=== PATIENT | female | born 1985 | race Caucasian/White ===

== ENCOUNTER 2024-07-26 18:30 | Emergency (ER) | payer MEDICAID, OTHER, SELFPAY ==
[2024-07-26] VITALS (13 sets, daily range): BP systolic 115–143; BP diastolic 45–74; PULSE 97–113; RESP 20; TEMP 36.4–36.6; O2SAT 97–100; BMI 18.8
--- NOTE | 2024-07-26 18:45 | ED_ITS ---
HPI - General Adult General Time Seen by Provider: 18:46 <Autumn Santiago MD - Last Filed: 07/26/24 22:38> Date Seen: 07/26/24 <Autumn Santiago MD - Last Filed: 07/26/24 22:38> Chief complaint: Unspecified Complaint, Adult <Autumn Santiago MD - Last Filed: 07/26/24 22:38> Stated complaint: dizziness <Autumn Santiago MD - Last Filed: 07/26/24 22:38> Time Seen by Provider: 07/26/24 18:45 <Autumn Santiago MD - Last Filed: 07/26/24 22:38> Source: patient, RN notes reviewed and other (Significant other Ruperto) <Autumn Santiago MD - Last Filed: 07/26/24 22:38> Mode of arrival: EMS <Autumn Santiago MD - Last Filed: 07/26/24 22:38> Limitations: no limitations <Autumn Santiago MD - Last Filed: 07/26/24 22:38> History of Present Illness HPI narrative: Emiliana is a 39-year-old female with a history of chronic fatigue syndrome who comes to the emergency room via EMS off the [place] for complaints of feeling lightheaded and like she was going to pass out. According to EMS patient was noted to have [place] [address] [place] as she was feeling lightheaded, dizzy and thought she was going to pass out. She had been up in the [facility] for the weekend and she was on her way home to [facility] when this occurred. Once in the emergency room she notes that she was feeling so dizzy and that something was wrong. She stated to nurses that the felling is going to take me over? and she has ?an unusual warmth inside and ? and begged the nurse not to lever there alone. She denies any alcohol or drug use. Upon meeting Emiliana in room 6, she make statements to me like there is an ice pick into my heart and ice is flowing through my veins. She states that something is wrong and she is very scared. She suddenly states that I half to go to the bathroom and we immediately bring a commode in. She states that she feels like she is going to pass out and that bad feeling is coming back but yet she is able to stand up and get to the commode without difficulty. She has normal bowel movement. I do return to the room later. There was only normal bowel movement in no diarrhea. Patient did not have any vomiting. I am able to further talked to Emiliana. She is not particularly forthcoming with what she was doing in the [facility] over the weekend. She denies any major medical problems including mental illness. She continues to make statements that she is very scared and that something is wrong and her whole body is in spasm. She states that she does not want to be alone. Taking her history is very challenging as she is not answering my questions about her past medical history but prefers to make some odd statements regarding how she is feeling at this very moment. She does deny any trauma this weekend or drug use or anyone hurting her. When asked about alcohol use she states ?I do not constitution party?. <Autumn Santiago MD - Last Filed: 07/26/24 22:38> Related Data Allergies/adverse reactions: Allergies Allergy/AdvReac Type Severity Reaction Status Date / Time erythromycin base (From Allergy Mild Verified 07/26/24 18:40 Erythrocin) Penicillins Allergy Mild Verified 07/26/24 18:40 Sulfa (Sulfonamide Allergy Verified 07/26/24 18:40 Antibiotics) <Autumn Santiago MD - Last Filed: 07/26/24 22:38> Review of Systems Status of ROS: Reports: unobtainable due to mental status <Autumn Santiago MD - Last Filed: 07/26/24 22:38> Narrative: Denies any major medical illness, mental illness, , drug use, alcohol use. <Autumn Santiago MD - Last Filed: 07/26/24 22:38> [facility] Social History: Social History Smoking Status: Never smoker Do you use any of these nicotine containing products: None Second hand tobacco smoke exposure: No How often do you have a drink containing alcohol: never AUDIT-C Alcohol total score: 0 Non-prescribed substance use: denies use service: No <Autumn Santiago MD - Last Filed: 07/26/24 22:38> Exam Narrative: Exam Narrative: Emiliana is alert and oriented but extremely anxious. She makes odd statements about an ice pick going through her veins and her whole body being in spasm in spite of reassuring vital signs. We do try to comfort her here. She is asking that anybody in the room remain with her. Pupils are equal and reactive. Head is atraumatic normocephalic. Neck is supple. Range of motion of neck is full. Heart with a tachycardic rate that improves if there is no staff in the room. Lungs are clear bilaterally. Abdomen soft nontender. No evidence of unusual bruising or track bhakta on the arms. Moving all extremities without difficulty. Examination of the back shows no bruising. <Autumn Santiago MD - Last Filed: 07/26/24 22:38> Const: Vital Signs, click to edit/add: Vital Signs - 24 hr 07/26/24 18:35 07/26/24 19:39 07/26/24 19:45 Temperature 97.5 F L Pulse Rate 99 109 H Pulse Rate [Pulse Oximeter] 97 Respiratory Rate 20 Blood Pressure [Ri ght Upper Arm] 143/45 H Pulse Oximetry 100 100 100 Oxygen Delivery Me thod Room Air 07/26/24 19:49 07/26/24 20:00 07/26/24 20:15 Temperature Pulse Rate 99 100 107 H Pulse Rate [Pulse Oximeter] Respiratory Rate Blood Pressure [Ri ght Upper Arm] Pulse Oximetry 100 99 98 Oxygen Delivery Me thod 07/26/24 20:30 07/26/24 20:45 07/26/24 21:00 Temperature Pulse Rate 108 H 101 H 97 Pulse Rate [Pulse Oximeter] Respiratory Rate Blood Pressure [Ri ght Upper Arm] Pulse Oximetry 99 98 97 Oxygen Delivery Me thod 07/26/24 21:15 07/26/24 21:30 07/26/24 21:30 Temperature Pulse Rate 111 H 113 H Pulse Rate [Pulse Oximeter] Respiratory Rate Blood Pressure [Ri ght Upper Arm] 118/64 Pulse Oximetry 97 97 Oxygen Delivery Me thod Room Air 07/26/24 23:00 07/26/24 23:25 07/27/24 01:13 Temperature 97.9 F 97.9 F Pulse Rate Pulse Rate [Pulse Oximeter] 97 83 Respiratory Rate 20 20 Blood Pressure [Ri ght Upper Arm] 115/74 118/70 Pulse Oximetry 97 97 97 Oxygen Delivery Me thod Room Air Room Air 07/27/24 03:15 Temperature 97.9 F Pulse Rate Pulse Rate [Pulse Oximeter] 85 Respiratory Rate 20 Blood Pressure [Ri ght Upper Arm] 115/74 Pulse Oximetry 97 Oxygen Delivery Me thod Room Air <Autumn Santiago MD - Last Filed: 07/26/24 22:38> Vital Signs, click to edit/add: Vital Signs - 24 hr 07/26/24 18:35 07/26/24 19:39 07/26/24 19:45 Temperature 97.5 F L Pulse Rate 99 109 H Pulse Rate [Pulse Oximeter] 97 Respiratory Rate 20 Blood Pressure [Ri ght Upper Arm] 143/45 H Pulse Oximetry 100 100 100 Oxygen Delivery Me thod Room Air 07/26/24 19:49 07/26/24 20:00 07/26/24 20:15 Temperature Pulse Rate 99 100 107 H Pulse Rate [Pulse Oximeter] Respiratory Rate Blood Pressure [Ri ght Upper Arm] Pulse Oximetry 100 99 98 Oxygen Delivery Me thod 07/26/24 20:30 07/26/24 20:45 07/26/24 21:00 Temperature Pulse Rate 108 H 101 H 97 Pulse Rate [Pulse Oximeter] Respiratory Rate Blood Pressure [Ri ght Upper Arm] Pulse Oximetry 99 98 97 Oxygen Delivery Me thod 07/26/24 21:15 07/26/24 21:30 07/26/24 21:30 Temperature Pulse Rate 111 H 113 H Pulse Rate [Pulse Oximeter] Respiratory Rate Blood Pressure [Ri ght Upper Arm] 118/64 Pulse Oximetry 97 97 Oxygen Delivery Me thod Room Air 07/26/24 23:00 07/26/24 23:25 07/27/24 01:13 Temperature 97.9 F 97.9 F Pulse Rate Pulse Rate [Pulse Oximeter] 97 83 Respiratory Rate 20 20 Blood Pressure [Ri ght Upper Arm] 115/74 118/70 Pulse Oximetry 97 97 97 Oxygen Delivery Me thod Room Air Room Air 07/27/24 03:15 Temperature 97.9 F Pulse Rate Pulse Rate [Pulse Oximeter] 85 Respiratory Rate 20 Blood Pressure [Ri ght Upper Arm] 115/74 Pulse Oximetry 97 Oxygen Delivery Me thod Room Air <Olvin Seaman MD - Last Filed: 07/27/24 06:50> Documenting provider has reviewed patient's vital signs: yes <Autumn Santiago MD - Last Filed: 07/26/24 22:38> Course Course ED Course: Emiliana is presenting with multiple complaints, somewhat evasive with history taking and extreme anxiety and possible paranoia. She is receptive to us checking her blood and doing tests which we will do. There is no evidence of trauma at this time. Will check a CBC, comprehensive panel, CRP, alcohol, thiamin, B12, magnesium, vitamin-D, drug screen and alcohol. EKG and troponin will be added. Patient will be kept on the engine monitor. Differential diagnosis includes but is not limited to encephalopathy, intoxication, anxiety with panic attack, schizoaffective/schizophrenia, sleep deprivation or. Fortunately patient is not within our medical system. She is actually from [place]. Will attempt to get in contact with family. <Autumn Santiago MD - Last Filed: 07/26/24 22:38> Reevaluation(s) Reevaluation #1: Nursing staff notes Emiliana is not receptive to the blood pressure cuff. I have asked him to do manual checks every 1/2 hour. The pulse has normalized to the 90s. Temp is normal. Currently awaiting lab values. Of note, patient seems most comfortable under a blanket with a blanket around her head. Occasionally she yells out ?help me?. We are trying to reassure her. Given her anxiety a did give her Ativan 0.5 mg IV and this seems to have helped her. I was able to talk to her significant other Ruperto who states they have known each other for approximately 6 years but he does not know her extremely well. He does agree that he is a significant other. He states that she had a ?brutal we can?. She had gone to your conference and training in the [facility] and stated that she did not sleep at all 2 nights ago. He states that she got a hotel last night and was able to sleep. He notes that he was on the phone with her as she was driving on 19/02 and she is describing feeling lightheaded and thus she pulled over and he called 911 for her. He notes that she does have a h istory of anxiety but has never been hospitalized for it or needed to use medications. He notes that she is starting a new job and she has been within the last 6 years and therefore she is under a lot of stress. In terms of PTSD he states that she has told him a few things about growing up and the household that she lived in had ?horrible things? happen but he is unable to give me any further details. He does state that her son is with her mother and that she really should give her mom a call. Ruperto also notes that patient has had Lyme disease in the past and still think she deals with this. She is also on extremely restricted diet because of IBS. <Autumn Santiago MD - Last Filed: 07/26/24 22:38> Reevaluation #2: Patient's labs are reassuring at this time. Troponin is negative as is alcohol. Potassium slightly low at 3.2. I do speak with patient and she is remarkably improved. She is interactive, speaking normally and mentating normally at this time. She does tell me that she has had this happen before and she describes it as dysregulation and quivering of her brain. She notes that this has happened in the past. She does describe extreme stress and no sleep 48 hours ago. We are trying to provide some gluten free options for food at this time. Patient has heart rate that has been around 110-113. She does not have any chest pain at this time. O2 sats are within normal limits. She did receive 500 mL normal saline. Patient does tell me that she has had hematuria in the past and past both a 12 mm and 7 mm stone. She notes that since that happened in April she has had no further problems with she is enquiring about any possible blood in her urine today. Her test is negative. I did add a D-dimer as she has persistent tachycardia although I do think this is most likely from a stress reaction. <Autumn Santiago MD - Last Filed: 07/26/24 22:38> Vital Signs Vital signs: Initial Vital Signs Temperature 97.5 F L 07/26/24 18:35 Temperature Source Temporal Artery Scan 07/26/24 18:35 Pulse Rate 97 07/26/24 18:35 Pulse Rhythm Regular 07/26/24 18:35 Respiratory Rate 20 07/26/24 18:35 Blood Pressure 143/45 H 07/26/24 18:35 Blood Pressure Mean 77 07/26/24 18:35 Blood Pressure Position Sitting 07/26/24 18:35 Pulse Oximetry 100 07/26/24 18:35 Oxygen Delivery Method Room Air 07/26/24 18:35 Vital Signs Temperature 97.5 F L 07/26/24 18:35 Pulse Rate 97 07/26/24 18:35 Respiratory Rate 20 07/26/24 18:35 Blood Pressure 143/45 H 07/26/24 18:35 Pulse Oximetry 100 07/26/24 18:35 Oxygen Delivery Method Room Air 07/26/24 18:35 Temperature 97.9 F 07/27/24 03:15 Pulse Rate 85 07/27/24 03:15 Respiratory Rate 20 07/27/24 03:15 Blood Pressure 115/74 07/27/24 03:15 Pulse Oximetry 97 07/27/24 03:15 Oxygen Delivery Method Room Air 07/27/24 03:15 <Autumn Santiago MD - Last Filed: 07/26/24 22:38> Initial Vital Signs Temperature 97.5 F L 07/26/24 18:35 Temperature Source Temporal Artery Scan 07/26/24 18:35 Pulse Rate 97 07/26/24 18:35 Pulse Rhythm Regular 07/26/24 18:35 Respiratory Rate 20 07/26/24 18:35 Blood Pressure 143/45 H 07/26/24 18:35 Blood Pressure Mean 77 07/26/24 18:35 Blood Pressure Position Sitting 07/26/24 18:35 Pulse Oximetry 100 07/26/24 18:35 Oxygen Delivery Method Room Air 07/26/24 18:35 Vital Signs Temperature 97.5 F L 07/26/24 18:35 Pulse Rate 97 07/26/24 18:35 Respiratory Rate 20 07/26/24 18:35 Blood Pressure 143/45 H 07/26/24 18:35 Pulse Oximetry 100 07/26/24 18:35 Oxygen Delivery Method Room Air 07/26/24 18:35 Temperature 97.9 F 07/27/24 03:15 Pulse Rate 85 07/27/24 03:15 Respiratory Rate 20 07/27/24 03:15 Blood Pressure 115/74 07/27/24 03:15 Pulse Oximetry 97 07/27/24 03:15 Oxygen Delivery Method Room Air 07/27/24 03:15 <Olvin Seaman MD - Last Filed: 07/27/24 06:50> Medications Administered Medications: Discontinued Medications Generic Name Dose Route Start Last Admin Trade Name Freq PRN Reason Stop Dose Admin Sodium Chloride 500 mls @ 500 mls/hr 07/26/24 18:46 07/26/24 19:37 0.9 % Sodium Chloride 500 Ml IV 07/26/24 19:45 Infused .Q1H ONE Infusion Lorazepam 0.5 mg 07/26/24 19:23 07/26/24 19:36 Lorazepam 2 Mg/Ml Inj IVP 07/26/24 19:24 0.5 mg ONCE ONE Administration Potassium Bicarbonate 50 meq 07/26/24 22:01 07/26/24 22:22 Potassium Bicarb 25 Meq Effervescent Tab PO 07/26/24 22:02 50 meq ONCE ONE Administration Potassium Chloride 40 meq 07/26/24 23:05 07/26/24 23:10 Potassium Chloride 10 Meq Capsule Er PO 07/26/24 23:06 40 meq ONCE ONE Administration <Autumn Santiago MD - Last Filed: 07/26/24 22:38> Discontinued Medications Generic Name Dose Route Start Last Admin Trade Name Freq PRN Reason Stop Dose Admin Sodium Chloride 500 mls @ 500 mls/hr 07/26/24 18:46 07/26/24 19:37 0.9 % Sodium Chloride 500 Ml IV 07/26/24 19:45 Infused .Q1H ONE Infusion Lorazepam 0.5 mg 07/26/24 19:23 07/26/24 19:36 Lorazepam 2 Mg/Ml Inj IVP 07/26/24 19:24 0.5 mg ONCE ONE Administration Potassium Bicarbonate 50 meq 07/26/24 22:01 07/26/24 22:22 Potassium Bicarb 25 Meq Effervescent Tab PO 07/26/24 22:02 50 meq ONCE ONE Administration Potassium Chloride 40 meq 07/26/24 23:05 07/26/24 23:10 Potassium Chloride 10 Meq Capsule Er PO 07/26/24 23:06 40 meq ONCE ONE Administration <Olvin Seaman MD - Last Filed: 07/27/24 06:50> Medical Decision Making MDM Narrative Medical decision making narrative: 1. Dizziness-patient noted to have a neurological exam with full range of motion, no headache, normal EKG. I do believe this is likely from extreme anxiety. Symptoms have resolved at this time with Ativan 0.5 mg IV. COVID/influenza/RSV negative. Alcohol negative and drug screen is negative. 2. Anxiety-patient noted to be improved after Ativan 0.5 mg. According to her significant other does have a history of anxiety but has not needed medical treatment medications and has not been hospitalized. This may be a combination of extreme fatigue as well as stressors. Initial plan was to have patient see social human services assistants tomorrow but she is completely resolved at this time. She has resumed normal speech interaction and mentation. Her significant other is on his way at this time. 3. Tachycardia-this is in the setting of no cough, no unusual swelling of the lower extremities and a normal oxygen level. Patient did receive normal saline. I have a D-dimer pending. If positive patient will need CT of the chest, if negative discharge home as planned. 3. Disposition-initial plan was to remain in the ED overnight with social human services assistants consult tomorrow morning. The unusual statements patient initially made have resolved. Patient's boyfriend is on his way here. Emiliana's car as on the side of the free[place] in [place]. I would not want her to be driving tonight after the events of today. Therefore would request that Emiliana stay in the ED overnight with continued cardiac monitoring and discharge to [facility] morning if no recurrence of symptoms. Addendum: D-dimer is negative. Patient able to eat kind bar in is requesting for another kind bar along with peanut butter which will provide to her. She is currently also drinking her liquid potassium. Have cleared with her that I plan on keeping her on the monitor overnight and then discharge her tomorrow morning. Have signed this patient out to my partner Dr. Pacheco. will be the physician overnight. Request that he discharge patient in the morning as long as there are no recurrent symptoms. <Autumn Santiago MD - Last Filed: 07/26/24 22:38> 1. Dizziness-patient noted to have a neurological exam with full range of motion, no headache, normal EKG. I do believe this is likely from extreme anxiety. Symptoms have resolved at this time with Ativan 0.5 mg IV. COVID/influenza/RSV negative. Alcohol negative and drug screen is negative. 2. Anxiety-patient noted to be improved after Ativan 0.5 mg. According to her significant other does have a history of anxiety but has not needed medical treatment medications and has not been hospitalized. This may be a combination of extreme fatigue as well as stressors. Initial plan was to have patient see social human services assistants tomorrow but she is completely resolved at this time. She has resumed normal speech interaction and mentation. Her significant other is on his way at this time. 3. Tachycardia-this is in the setting of no cough, no unusual swelling of the lower extremities and a normal oxygen level. Patient did receive normal saline. I have a D-dimer pending. If positive patient will need CT of the chest, if negative discharge home as planned. 3. Disposition-initial plan was to remain in the ED overnight with social human services assistants consult tomorrow morning. The unusual statements patient initially made have resolved. Patient's boyfriend is on his way here. Emiliana's car as on the side of the freeway in [place]. I would not want her to be driving tonight after the events of today. Therefore would request that Emiliana stay in the ED overnight with continued cardiac monitoring and discharge tomorrow morning if no recurrence of symptoms. Addendum: D-dimer is negative. Patient able to eat kind bar in is requesting for another kind bar along with peanut butter which will provide to her. She is currently also drinking her liquid potassium. Have cleared with her that I plan on keeping her on the monitor overnight and then discharge her tomorrow morning. Have signed this patient out to my partner Dr. Pacheco. will be the physician overnight. Request that he discharge patient in the morning as long as there are no recurrent symptoms. Jurgen -- inherited this patient at change of shift. No events overnight. Anticipating discharge shortly. Discharge per Dr. Santiago <Olvin Seaman MD - Last Filed: 07/27/24 06:50> Lab Data Lab results reviewed: Yes I reviewed the patient's lab results <Autumn Santiago MD - Last Filed: 07/26/24 22:38> Labs: Lab Results 07/26/24 07/26/24 07/26/24 Range/Units 18:47 19:15 19:18 WBC 5.11 (4.50-11.00) K/uL RBC 4.51 (4.00-5.20) m/uL Hgb 12.1 (12.0-16.0) gm/dL Hct 37.4 (33.0-51.0) % MCV 83 (80-100) fL MCH 27 (26-34) pg MCHC 32 (32-36) gm/dL RDW Coeff of Delores 12.2 (11.5-15.5) % Plt Count 218 (140-440) K/uL Neut % (Auto) 64.8 (42.0-72.0) % Lymph % (Auto) 21.5 (20-44) % [place] % (Auto) 11.5 H (0.0-11.0) % Eos % (Auto) 1.4 (0.0-7.0) % Baso % (Auto) 0.8 (0.0-3.0) % Neut # (Auto) 3.31 (1.7-7.0) K/uL Lymph # (Auto) 1.10 (0.90-2.90) K/uL [place] # (Auto) 0.60 (0.00-0.90) K/UL Eos # (Auto) 0.07 (0.00-0.50) K/uL Baso # (Auto) 0.04 (0.00-0.30) K/uL Abs Immat Gran (auto) 0.00 (0.00-0.30) K/uL Imm/Tot Granulo (auto) 0.0 % D-Dimer Quant (PE/DVT) 0.16 (0.00-0.50) ug/ml Sodium 135 (135-149) mmol/L Potassium 3.2 L (3.6-5.1) mmol/L Chloride 103 (96-114) mmol/L Carbon Dioxide 22 (20-32) mmol/L Anion Gap 10 (7-15) mEq/L BUN 16 (5-24) mg/dL Creatinine 0.9 (0.5-1.5) mg/dL Estimated Creat Clear 70.68 Estimated GFR 82 ml/min Glucose 116 H (60-115) mg/dL Calcium 9.3 (8.4-10.6) mg/dL Magnesium 1.9 (1.5-2.6) mg/dL Total Bilirubin 0.9 (0.1-1.5) mg/dL AST 21 (12-35) U/L ALT 18 (4-35) U/L Alkaline Phosphatase 64 (40-150) U/L Troponin I < 0.01 L (0.01-0.04) ng/mL Total Protein 7.2 (6.0-8.3) g/dL Albumin 4.4 (3.3-5.0) g/dL Vitamin B12 406 (243-894) pg/mL 25-OH Vitamin D Total 44 (30-80) ng/mL HCG, Qual Negative (Negative) Urine Color (Yellow) Urine Appearance (Clear) Urine pH (5.0-8.5) Ur Specific [place] (1.000-1.030) Urine Protein (Negative) Urine Glucose (UA) (Negative) Urine Ketones (Negative) Urine Blood (Negative) Urine Nitrite (Negative) Urine Bilirubin (Negative) Urine Urobilinogen (0.2-1.0) Ur Leukocyte Esterase (Negative) Urine RBC (0-2) Urine WBC (0-5) Ur Squamous Epith Cells (None-Few) Urine Bacteria (None) Urine Opiates Screen (Negative) Ur Oxycodone Screen (Negative) Urine Methadone Screen (Negative) Ur Barbiturates Screen (Negative) U Tricyclic Antidepress (Negative) Ur Phencyclidine Scrn (Negative) Ur Amphetamines Screen (Negative) U Methamphetamines Scrn (Negative) U Benzodiazepines Scrn (Negative) Urine Cocaine Screen (Negative) U Marijuana (THC) Screen (Negative) Ur Drug Screen Comment Ethyl Alcohol < 0.01 L (0.01-0.03) % SARS-CoV-2 (PCR) (Negative) Influenza Type A (PCR) (Negative) Influenza Type B (PCR) (Negative) RSV (PCR) (Negative) Lab Acknowledgement Test Added POC Troponin I 0.00 L (0.01-0.04) ng/ml 07/26/24 07/26/24 07/26/24 Range/Units 20:00 20:16 20:47 WBC (4.50-11.00) K/uL RBC (4.00-5.20) m/uL Hgb (12.0-16.0) gm/dL Hct (33.0-51.0) % MCV (80-100) fL MCH (26-34) pg MCHC (32-36) gm/dL RDW Coeff of Delores (11.5-15.5) % Plt Count (140-440) K/uL Neut % (Auto) (42.0-72.0) % Lymph % (Auto) (20-44) % [place] % (Auto) (0.0-11.0) % Eos % (Auto) (0.0-7.0) % Baso % (Auto) (0.0-3.0) % Neut # (Auto) (1.7-7.0) K/uL Lymph # (Auto) (0.90-2.90) K/uL [place] # (Auto) (0.00-0.90) K/UL Eos # (Auto) (0.00-0.50) K/uL Baso # (Auto) (0.00-0.30) K/uL Abs Immat Gran (auto) (0.00-0.30) K/uL Imm/Tot Granulo (auto) % D-Dimer Quant (PE/DVT) (0.00-0.50) ug/ml Sodium (135-149) mmol/L Potassium (3.6-5.1) mmol/L Chloride (96-114) mmol/L Carbon Dioxide (20-32) mmol/L Anion Gap (7-15) mEq/L BUN (5-24) mg/dL Creatinine (0.5-1.5) mg/dL Estimated Creat Clear Estimated GFR ml/min Glucose (60-115) mg/dL Calcium (8.4-10.6) mg/dL Magnesium (1.5-2.6) mg/dL Total Bilirubin (0.1-1.5) mg/dL AST (12-35) U/L ALT (4-35) U/L Alkaline Phosphatase (40-150) U/L Troponin I (0.01-0.04) ng/mL Total Protein (6.0-8.3) g/dL Albumin (3.3-5.0) g/dL Vitamin B12 (243-894) pg/mL 25-OH Vitamin D Total (30-80) ng/mL HCG, Qual (Negative) Urine Color Yellow (Yellow) Urine Appearance Clear (Clear) Urine pH 7.0 (5.0-8.5) Ur Specific [place] 1.010 (1.000-1.030) Urine Protein Negative (Negative) Urine Glucose (UA) Negative (Negative) Urine Ketones Trace A (Negative) Urine Blood Trace-intact A (Negative) Urine Nitrite Negative (Negative) Urine Bilirubin Negative (Negative) Urine Urobilinogen 0.2 (0.2-1.0) Ur Leukocyte Esterase Negative (Negative) Urine RBC 0-2 (0-2) Urine WBC 0-2 (0-5) Ur Squamous Epith Cells None (None-Few) Urine Bacteria None (None) Urine Opiates Screen Negative (Negative) Ur Oxycodone Screen Negative (Negative) Urine Methadone Screen Negative (Negative) Ur Barbiturates Screen Negative (Negative) U Tricyclic Antidepress Negative (Negative) Ur Phencyclidine Scrn Negative (Negative) Ur Amphetamines Screen Negative (Negative) U Methamphetamines Scrn Negative (Negative) U Benzodiazepines Scrn Negative (Negative) Urine Cocaine Screen Negative (Negative) U Marijuana (THC) Screen Negative (Negative) Ur Drug Screen Comment See Note Ethyl Alcohol (0.01-0.03) % SARS-CoV-2 (PCR) (Negative) Influenza Type A (PCR) (Negative) Influenza Type B (PCR) (Negative) RSV (PCR) (Negative) Lab Acknowledgement Test Added POC Troponin I (0.01-0.04) ng/ml 07/26/24 Range/Units 21:12 WBC (4.50-11.00) K/uL RBC (4.00-5.20) m/uL Hgb (12.0-16.0) gm/dL Hct (33.0-51.0) % MCV (80-100) fL MCH (26-34) pg MCHC (32-36) gm/dL RDW Coeff of Delores (11.5-15.5) % Plt Count (140-440) K/uL Neut % (Auto) (42.0-72.0) % Lymph % (Auto) (20-44) % [place] % (Auto) (0.0-11.0) % Eos % (Auto) (0.0-7.0) % Baso % (Auto) (0.0-3.0) % Neut # (Auto) (1.7-7.0) K/uL Lymph # (Auto) (0.90-2.90) K/uL [place] # (Auto) (0.00-0.90) K/UL Eos # (Auto) (0.00-0.50) K/uL Baso # (Auto) (0.00-0.30) K/uL Abs Immat Gran (auto) (0.00-0.30) K/uL Imm/Tot Granulo (auto) % D-Dimer Quant (PE/DVT) (0.00-0.50) ug/ml Sodium (135-149) mmol/L Potassium (3.6-5.1) mmol/L Chloride (96-114) mmol/L Carbon Dioxide (20-32) mmol/L Anion Gap (7-15) mEq/L BUN (5-24) mg/dL Creatinine (0.5-1.5) mg/dL Estimated Creat Clear Estimated GFR ml/min Glucose (60-115) mg/dL Calcium (8.4-10.6) mg/dL Magnesium (1.5-2.6) mg/dL Total Bilirubin (0.1-1.5) mg/dL AST (12-35) U/L ALT (4-35) U/L Alkaline Phosphatase (40-150) U/L Troponin I (0.01-0.04) ng/mL Total Protein (6.0-8.3) g/dL Albumin (3.3-5.0) g/dL Vitamin B12 (243-894) pg/mL 25-OH Vitamin D Total (30-80) ng/mL HCG, Qual (Negative) Urine Color (Yellow) Urine Appearance (Clear) Urine pH (5.0-8.5) Ur Specific [place] (1.000-1.030) Urine Protein (Negative) Urine Glucose (UA) (Negative) Urine Ketones (Negative) Urine Blood (Negative) Urine Nitrite (Negative) Urine Bilirubin (Negative) Urine Urobilinogen (0.2-1.0) Ur Leukocyte Esterase (Negative) Urine RBC (0-2) Urine WBC (0-5) Ur Squamous Epith Cells (None-Few) Urine Bacteria (None) Urine Opiates Screen (Negative) Ur Oxycodone Screen (Negative) Urine Methadone Screen (Negative) Ur Barbiturates Screen (Negative) U Tricyclic Antidepress (Negative) Ur Phencyclidine Scrn (Negative) Ur Amphetamines Screen (Negative) U Methamphetamines Scrn (Negative) U Benzodiazepines Scrn (Negative) Urine Cocaine Screen (Negative) U Marijuana (THC) Screen (Negative) Ur Drug Screen Comment Ethyl Alcohol (0.01-0.03) % SARS-CoV-2 (PCR) Negative SARS-CoV-2 (Negative) Influenza Type A (PCR) Negative PCR FLU A (Negative) Influenza Type B (PCR) Negative PCR FLU B (Negative) RSV (PCR) Negative PCR RSV (Negative) Lab Acknowledgement POC Troponin I (0.01-0.04) ng/ml <Autumn Santiago MD - Last Filed: 07/26/24 22:38> Lab Results 07/26/24 07/26/24 07/26/24 Range/Units 18:47 19:15 19:18 WBC 5.11 (4.50-11.00) K/uL RBC 4.51 (4.00-5.20) m/uL Hgb 12.1 (12.0-16.0) gm/dL Hct 37.4 (33.0-51.0) % MCV 83 (80-100) fL MCH 27 (26-34) pg MCHC 32 (32-36) gm/dL RDW Coeff of Delores 12.2 (11.5-15.5) % Plt Count 218 (140-440) K/uL Neut % (Auto) 64.8 (42.0-72.0) % Lymph % (Auto) 21.5 (20-44) % [place] % (Auto) 11.5 H (0.0-11.0) % Eos % (Auto) 1.4 (0.0-7.0) % Baso % (Auto) 0.8 (0.0-3.0) % Neut # (Auto) 3.31 (1.7-7.0) K/uL Lymph # (Auto) 1.10 (0.90-2.90) K/uL [place] # (Auto) 0.60 (0.00-0.90) K/UL Eos # (Auto) 0.07 (0.00-0.50) K/uL Baso # (Auto) 0.04 (0.00-0.30) K/uL Abs Immat Gran (auto) 0.00 (0.00-0.30) K/uL Imm/Tot Granulo (auto) 0.0 % D-Dimer Quant (PE/DVT) 0.16 (0.00-0.50) ug/ml Sodium 135 (135-149) mmol/L Potassium 3.2 L (3.6-5.1) mmol/L Chloride 103 (96-114) mmol/L Carbon Dioxide 22 (20-32) mmol/L Anion Gap 10 (7-15) mEq/L BUN 16 (5-24) mg/dL Creatinine 0.9 (0.5-1.5) mg/dL Estimated Creat Clear 70.68 Estimated GFR 82 ml/min Glucose 116 H (60-115) mg/dL Calcium 9.3 (8.4-10.6) mg/dL Magnesium 1.9 (1.5-2.6) mg/dL Total Bilirubin 0.9 (0.1-1.5) mg/dL AST 21 (12-35) U/L ALT 18 (4-35) U/L Alkaline Phosphatase 64 (40-150) U/L Troponin I < 0.01 L (0.01-0.04) ng/mL Total Protein 7.2 (6.0-8.3) g/dL Albumin 4.4 (3.3-5.0) g/dL Vitamin B12 406 (243-894) pg/mL 25-OH Vitamin D Total 44 (30-80) ng/mL HCG, Qual Negative (Negative) Urine Color (Yellow) Urine Appearance (Clear) Urine pH (5.0-8.5) Ur Specific [place] (1.000-1.030) Urine Protein (Negative) Urine Glucose (UA) (Negative) Urine Ketones (Negative) Urine Blood (Negative) Urine Nitrite (Negative) Urine Bilirubin (Negative) Urine Urobilinogen (0.2-1.0) Ur Leukocyte Esterase (Negative) Urine RBC (0-2) Urine WBC (0-5) Ur Squamous Epith Cells (None-Few) Urine Bacteria (None) Urine Opiates Screen (Negative) Ur Oxycodone Screen (Negative) Urine Methadone Screen (Negative) Ur Barbiturates Screen (Negative) U Tricyclic Antidepress (Negative) Ur Phencyclidine Scrn (Negative) Ur Amphetamines Screen (Negative) U Methamphetamines Scrn (Negative) U Benzodiazepines Scrn (Negative) Urine Cocaine Screen (Negative) U Marijuana (THC) Screen (Negative) Ur Drug Screen Comment Ethyl Alcohol < 0.01 L (0.01-0.03) % SARS-CoV-2 (PCR) (Negative) Influenza Type A (PCR) (Negative) Influenza Type B (PCR) (Negative) RSV (PCR) (Negative) Lab Acknowledgement Test Added POC Troponin I 0.00 L (0.01-0.04) ng/ml 07/26/24 07/26/24 07/26/24 Range/Units 20:00 20:16 20:47 WBC (4.50-11.00) K/uL RBC (4.00-5.20) m/uL Hgb (12.0-16.0) gm/dL Hct (33.0-51.0) % MCV (80-100) fL MCH (26-34) pg MCHC (32-36) gm/dL RDW Coeff of Delores (11.5-15.5) % Plt Count (140-440) K/uL Neut % (Auto) (42.0-72.0) % Lymph % (Auto) (20-44) % [place] % (Auto) (0.0-11.0) % Eos % (Auto) (0.0-7.0) % Baso % (Auto) (0.0-3.0) % Neut # (Auto) (1.7-7.0) K/uL Lymph # (Auto) (0.90-2.90) K/uL [place] # (Auto) (0.00-0.90) K/UL Eos # (Auto) (0.00-0.50) K/uL Baso # (Auto) (0.00-0.30) K/uL Abs Immat Gran (auto) (0.00-0.30) K/uL Imm/Tot Granulo (auto) % D-Dimer Quant (PE/DVT) (0.00-0.50) ug/ml Sodium (135-149) mmol/L Potassium (3.6-5.1) mmol/L Chloride (96-114) mmol/L Carbon Dioxide (20-32) mmol/L Anion Gap (7-15) mEq/L BUN (5-24) mg/dL Creatinine (0.5-1.5) mg/dL Estimated Creat Clear Estimated GFR ml/min Glucose (60-115) mg/dL Calcium (8.4-10.6) mg/dL Magnesium (1.5-2.6) mg/dL Total Bilirubin (0.1-1.5) mg/dL AST (12-35) U/L ALT (4-35) U/L Alkaline Phosphatase (40-150) U/L Troponin I (0.01-0.04) ng/mL Total Protein (6.0-8.3) g/dL Albumin (3.3-5.0) g/dL Vitamin B12 (243-894) pg/mL 25-OH Vitamin D Total (30-80) ng/mL HCG, Qual (Negative) Urine Color Yellow (Yellow) Urine Appearance Clear (Clear) Urine pH 7.0 (5.0-8.5) Ur Specific [place] 1.010 (1.000-1.030) Urine Protein Negative (Negative) Urine Glucose (UA) Negative (Negative) Urine Ketones Trace A (Negative) Urine Blood Trace-intact A (Negative) Urine Nitrite Negative (Negative) Urine Bilirubin Negative (Negative) Urine Urobilinogen 0.2 (0.2-1.0) Ur Leukocyte Esterase Negative (Negative) Urine RBC 0-2 (0-2) Urine WBC 0-2 (0-5) Ur Squamous Epith Cells None (None-Few) Urine Bacteria None (None) Urine Opiates Screen Negative (Negative) Ur Oxycodone Screen Negative (Negative) Urine Methadone Screen Negative (Negative) Ur Barbiturates Screen Negative (Negative) U Tricyclic Antidepress Negative (Negative) Ur Phencyclidine Scrn Negative (Negative) Ur Amphetamines Screen Negative (Negative) U Methamphetamines Scrn Negative (Negative) U Benzodiazepines Scrn Negative (Negative) Urine Cocaine Screen Negative (Negative) U Marijuana (THC) Screen Negative (Negative) Ur Drug Screen Comment See Note Ethyl Alcohol (0.01-0.03) % SARS-CoV-2 (PCR) (Negative) Influenza Type A (PCR) (Negative) Influenza Type B (PCR) (Negative) RSV (PCR) (Negative) Lab Acknowledgement Test Added POC Troponin I (0.01-0.04) ng/ml 07/26/24 Range/Units 21:12 WBC (4.50-11.00) K/uL RBC (4.00-5.20) m/uL Hgb (12.0-16.0) gm/dL Hct (33.0-51.0) % MCV (80-100) fL MCH (26-34) pg MCHC (32-36) gm/dL RDW Coeff of Delores (11.5-15.5) % Plt Count (140-440) K/uL Neut % (Auto) (42.0-72.0) % Lymph % (Auto) (20-44) % [place] % (Auto) (0.0-11.0) % Eos % (Auto) (0.0-7.0) % Baso % (Auto) (0.0-3.0) % Neut # (Auto) (1.7-7.0) K/uL Lymph # (Auto) (0.90-2.90) K/uL [place] # (Auto) (0.00-0.90) K/UL Eos # (Auto) (0.00-0.50) K/uL Baso # (Auto) (0.00-0.30) K/uL Abs Immat Gran (auto) (0.00-0.30) K/uL Imm/Tot Granulo (auto) % D-Dimer Quant (PE/DVT) (0.00-0.50) ug/ml Sodium (135-149) mmol/L Potassium (3.6-5.1) mmol/L Chloride (96-114) mmol/L Carbon Dioxide (20-32) mmol/L Anion Gap (7-15) mEq/L BUN (5-24) mg/dL Creatinine (0.5-1.5) mg/dL Estimated Creat Clear Estimated GFR ml/min Glucose (60-115) mg/dL Calcium (8.4-10.6) mg/dL Magnesium (1.5-2.6) mg/dL Total Bilirubin (0.1-1.5) mg/dL AST (12-35) U/L ALT (4-35) U/L Alkaline Phosphatase (40-150) U/L Troponin I (0.01-0.04) ng/mL Total Protein (6.0-8.3) g/dL Albumin (3.3-5.0) g/dL Vitamin B12 (243-894) pg/mL 25-OH Vitamin D Total (30-80) ng/mL HCG, Qual (Negative) Urine Color (Yellow) Urine Appearance (Clear) Urine pH (5.0-8.5) Ur Specific [place] (1.000-1.030) Urine Protein (Negative) Urine Glucose (UA) (Negative) Urine Ketones (Negative) Urine Blood (Negative) Urine Nitrite (Negative) Urine Bilirubin (Negative) Urine Urobilinogen (0.2-1.0) Ur Leukocyte Esterase (Negative) Urine RBC (0-2) Urine WBC (0-5) Ur Squamous Epith Cells (None-Few) Urine Bacteria (None) Urine Opiates Screen (Negative) Ur Oxycodone Screen (Negative) Urine Methadone Screen (Negative) Ur Barbiturates Screen (Negative) U Tricyclic Antidepress (Negative) Ur Phencyclidine Scrn (Negative) Ur Amphetamines Screen (Negative) U Methamphetamines Scrn (Negative) U Benzodiazepines Scrn (Negative) Urine Cocaine Screen (Negative) U Marijuana (THC) Screen (Negative) Ur Drug Screen Comment Ethyl Alcohol (0.01-0.03) % SARS-CoV-2 (PCR) Negative SARS-CoV-2 (Negative) Influenza Type A (PCR) Negative PCR FLU A (Negative) Influenza Type B (PCR) Negative PCR FLU B (Negative) RSV (PCR) Negative PCR RSV (Negative) Lab Acknowledgement POC Troponin I (0.01-0.04) ng/ml <Olvin Seaman MD - Last Filed: 07/27/24 06:50> Discharge Plan Discharge Clinical Impression: Anxiety, Body aches, Hypokalemia <Autumn Santiago MD - Last Filed: 07/26/24 22:38> Patient Disposition: Home, Self-Care <Autumn Santiago MD - Last Filed: 07/26/24 22:38> Condition: Improved <Autumn Santiago MD - Last Filed: 07/26/24 22:38> Additional Instructions: Follow-up with your primary MD at home. Suggest some type of heart monitor when you go back home. Recheck potassium in approximately 1 week. Seek medical attention for recurrence of symptoms. <Autumn Santiago MD - Last Filed: 07/26/24 22:38> Follow Up/Referrals: Provider,Not a Local [Primary Care Provider] - <Autumn Santiago MD - Last Filed: 07/26/24 22:38> Stand Alone Forms: MyHealth Info Instructions <Autumn Santiago MD - Last Filed: 07/26/24 22:38>
[2024-07-26] MEDS: 0.9 % SODIUM CHLORIDE 500 ML 500 ML IV (19:00)
[2024-07-26 19:28] LABS: Basophils Absolute Auto 0.04 K/uL (0.00-0.30); Basophils Percent Auto 0.8 % (0.0-3.0); Eosinophils Absolute Auto 0.07 K/uL (0.00-0.50); Eosinophils Percent Auto 1.4 % (0.0-7.0); Hematocrit 37.4 % (33.0-51.0); Hemoglobin* 12.1 gm/dL (12.0-16.0); Lymphocytes Percent Auto 21.5 % (20-44); Mean Corpuscular HGB Conc 32 gm/dL (32-36); Mean Corpuscular Hemoglobin 27 pg (26-34); Mean Corpuscular Volume 83 fL (80-100); Monocytes Percent Auto 11.5 % (0.0-11.0); Neutrophils Absolute Auto 3.31 K/uL (1.7-7.0); Neutrophils Percent Auto 64.8 % (42.0-72.0); Platelet Count* 218 K/uL (140-440); RDW Coefficient of Variation % 12.2 % (11.5-15.5); Red Blood Count 4.51 m/uL (4.00-5.20); White Blood Count* 5.11 K/uL (4.50-11.00)
[2024-07-26 19:30] LABS: Slide Review Reflex No
[2024-07-26] MEDS: LORazepam 2 MG/ML inj 0.5 MG IVP (19:36)
[2024-07-26 19:42] LABS: Albumin* 4.4 g/dL (3.3-5.0); Chloride* 103 mmol/L (96-114); Potassium* 3.2 mmol/L (3.6-5.1); Sodium* 135 mmol/L (135-149)
[2024-07-26 19:44] LABS: Creatinine* 0.9 mg/dL (0.5-1.5); Est. Creatinine Clearance* 70.68; Estimated Glomerular Filt Rate 82 ml/min
[2024-07-26 19:45] LABS: Alanine Aminotransferase* 18 U/L (4-35); Alkaline Phosphatase* 64 U/L (40-150); Anion Gap 10 mEq/L (7-15); Aspartate Amino Transferase* 21 U/L (12-35); Bilirubin Total* 0.9 mg/dL (0.1-1.5); Blood Urea Nitrogen* 16 mg/dL (5-24); Carbon Dioxide* 22 mmol/L (20-32); Glucose* 116 mg/dL (60-115); Total Protein* 7.2 g/dL (6.0-8.3)
[2024-07-26 19:46] LABS: Calcium* 9.3 mg/dL (8.4-10.6)
[2024-07-26 19:50] LABS: HCG Qualitative Serum* Negative (Negative)
[2024-07-26 20:23] LABS: Appearance Urine Clear (Clear); Bilirubin Urine Negative (Negative); Blood Urine Trace-intact (Negative); Color Urine Yellow (Yellow); Glucose Urine Negative (Negative); Ketones Urine Trace (Negative); Leukocyte Esterase Urine Negative (Negative); Nitrite Urine Negative (Negative); Protein Urine Negative (Negative); Urobilinogen Urine 0.2 (0.2-1.0)
[2024-07-26 20:44] LABS: Amphetamine Screen Urine Negative (Negative); Barbiturate Screen Urine Negative (Negative); Benzodiazepines Screen Urine Negative (Negative); Cannabinoid Screen Urine Negative (Negative); Cocaine Screen Urine Negative (Negative); Methadone Screen Urine Negative (Negative); Methamphetamines Screen Urine Negative (Negative); Opiate Screen Urine Negative (Negative); Oxycodone Screen Urine Negative (Negative); Phencyclidine Screen Urine Negative (Negative); Tricyclic Antidepressant Urine Negative (Negative)
[2024-07-26 20:50] LABS: RBC Urine 0-2 (0-2); WBC Urine 0-2 (0-5)
[2024-07-26 21:22] LABS: Magnesium* 1.9 mg/dL (1.5-2.6)
[2024-07-26 21:26] LABS: Ethanol* < 0.01 % (0.01-0.03)
[2024-07-26 21:40] LABS: Troponin I* < 0.01 ng/mL (0.01-0.04)
[2024-07-26 21:43] LABS: Vitamin D 25 Hydroxy* 44 ng/mL (30-80)
[2024-07-26 22:01] LABS: PCR FLU A Negative PCR FLU A (Negative); PCR FLU B Negative PCR FLU B (Negative); PCR RSV Negative PCR RSV (Negative); SARS PCR* Negative SARS-CoV-2 (Negative)
[2024-07-26 22:10] LABS: Vitamin B12* 406 pg/mL (243-894)
[2024-07-26] MEDS: POTASSIUM BICARB 25 MEQ EFFERVESCENT TAB 50 MEQ PO (22:22)
[2024-07-26 22:27] LABS: D Dimer Quantitative* 0.16 ug/ml (0.00-0.50)
[2024-07-26] MEDS: POTASSIUM CHLORIDE 10 MEQ CAPSULE ER 40 MEQ PO (23:10)
[2024-07-27 01:13] VITALS: BP 118/70; PULSE 83; RESP 20; TEMP 36.6; O2SAT 97
[2024-07-27 03:15] VITALS: BP 115/74; PULSE 85; RESP 20; TEMP 36.6; O2SAT 97
[2024-07-27 05:45] VITALS: BP 121/74; PULSE 85; RESP 20; TEMP 36.6; O2SAT 97
[2024-07-30 21:22] LABS: Vitamin B1, Whole Blood 86 nmol/L (70-180)
== END 2024-07-27 07:39 | disposition home or self-care (01) ==
PROVIDERS: Emergency Provider Family Medicine
DX: F41.9 Anxiety disorder, unspecified (principal); R52 Pain, unspecified; E87.6 Hypokalemia
CPT/HCPCS: 36415; 80053; 80306; 81001; 82077; 82306; 82607; 83735; 84425; 84484; 84703; 85025; 85379; 87631; 93005; 94761; 96374; 99284; A9270; J2060; J7030